=== PATIENT | male | born 1955 | race Caucasian/White ===

== ENCOUNTER 2018-04-09 02:39 | Day surgery (SDC) | payer OTHER ==
[2018-04-09] VITALS (7 sets, daily range): BP systolic 95–118; BP diastolic 63–83
[~2018-04-09] VITALS: Ht 175.3 cm; Wt 109.3 kg
[~2018-04-09 02:39] MED LIST: ALB18R INH; AMOX-559 PO; AMOX875T60 PO; ASPI81TA94 PO; FLUT16SP19 NS; GOLYTE PO; INSU100I30 SQ; PNEI IJ; SITA1TAB17 PO; SITA1TBM4 PO
[2018-04-09] MEDS ORDERED: PROPOFOL EMUL(*) 10MG/ML 20 ML 20 ML ONE ×3 (07:09→09:53)
[2018-04-09] MEDS ORDERED: LIDOCAINE/SOD BICARB 8.4% SYR ID ONE (07:50)
[2018-04-09] MEDS ORDERED: NORMOSOL R SOLN(*) 1000 ML BAG 1,000 ML IV PRN (07:50)
--- NOTE | 2018-04-09 10:14 | Short(Outpt) Discharge Summary ---
Discharge Summary Reason for Hosp/Final Diag: (1) Family history of colon cancer in father Departure Discharge to: Home, Self Care Discharge Instructions Home Meds Active Scripts Peg/Electrolytes (GOLYTELY SOLUTION) 4,000 Ml Soln, 1 GAL PO ONCE, #1 GAL 0 Refills Prov:ISAIAH WALLACE MD 02/26/18 Insulin Glargine 100 Un/Ml Pen (LANTUS SOLOSTAR PEN) 100 Unit/1 Ml Insuln.pen, 80 UNIT SQ BID, #10 BOX 3 Refills add 2 units every 3 days until FBS less than 100-120 Prov:SHARIFA RODRIGUEZ MD 02/03/18 Albuterol Sulfate (VENTOLIN HFA) 18 Gm Inh, 1-2 PUFF INH QDAY Y for WHEEZING, # 1 INH 1 Refill Prov:SHARIFA RODRIGUEZ MD 09/13/17 Sitagliptin Phos/Metformin Hcl (JANUMET XR 50-1,000 MG TABLET) 1 Each Tbmp.24hr , 2 TAB PO QDAY, #180 TAB 3 Refills Prov:SHARIFA RODRIGUEZ MD 06/20/17 Reported Medications Aspirin (ASPIRIN) 81 Mg Tab.chew, 81 MG PO QDAY, TAB.CHEW 06/13/16 Diet: Regular Activity: As Tolerated Special Instructions: You colonoscopy was completed without any problems and your prep was excellent (Good Job!!). I removed a large polyp from you colon (from the cecum) and it was sent to pathology. I put tiny metal clips on the polyp site to prevent bleeding or perforation and they will fall out in your stool in about 10-14 days. Don't be alarmed if you see these but you will likely not even notice them. My office will call you in the next week or two and let you know what the polyp is and when your next colonoscopy should be. ISAIAH WALLACE MD Apr 09, 2018 10:13
== END 2018-04-09 11:10 | disposition home or self-care (01) ==
LOC: OR 02:39
PROVIDERS: ATTEND Surgery
DX: Z12.11 Encounter for screening for malignant neoplasm of colon (principal); K63.5 Polyp of colon; K57.30 Diverticulosis of large intestine without perforation or abscess without bleeding; E66.9 Obesity, unspecified; E11.9 Type 2 diabetes mellitus without complications; J45.909 Unspecified asthma, uncomplicated; E78.5 Hyperlipidemia, unspecified; Z80.0 Family history of malignant neoplasm of digestive organs; Z68.35 Body mass index [BMI] 35.0-35.9, adult
CPT/HCPCS: 00811; 36416; 45385; 82948; 88305; J2704

== ENCOUNTER → 2018-07-31 | Outpatient (CLI) | payer OTHER ==
[~2018-07-31] MED LIST changes: +DICL-192 PO
[2018-07-31 14:09] LABS: PLATELET COUNT, AUTOMATED 481 K/uL (150-450)
--- NOTE | 2018-07-31 15:02 | RADIOLOGY IMAGING REPORT ---
FACILITY: [facility] - [place] PATIENT NAME: Crow Rayo : 1955 MR: [id number] V: [id number] EXAM DATE: ORDERING PHYSICIAN: SHARIFA RODRIGUEZ TECHNOLOGIST: Location: [facility] - [place] Patient: Crow Rayo : 1955 Visit/Account:[id number] Date of Sevice: 07/31/2018 LUMBAR SPINE 2 OR 3 VIEW Indication: Back pain., screening Comparison: None available FINDINGS: There are 5 lumbar type vertebral bodies. There is no acute osseous or acute alignment abnormality. There are moderate diffuse disc space narrowing changes noted throughout the lumbar spine. Large ant erior osteophyte formation is noted the disc space at L1-2. No spondylolisthesis is identified. The vertebral body heights appear well-maintained. IMPRESSION: 1. Diffuse moderate multilevel degenerative disc space disease, no acute abnormality noted Report Dictated By: Flash Arguello at 07/31/2018 2:49 PM Report E-Signed By: Flash Arguello at 07/31/2018 2:58 PM WSN:[id number]
== END ==
LOC: LAB 13:23
PROVIDERS: ATTEND Internal Medicine
DX: M47.896 Other spondylosis, lumbar region (principal); R52 Pain, unspecified; E11.9 Type 2 diabetes mellitus without complications; E78.5 Hyperlipidemia, unspecified
CPT/HCPCS: 36415; 72100; 81001; 82040; 82247; 82310; 82374; 82435; 82550; 82565; 82947; 84075; 84132; 84153; 84155; 84295; 84450; 84460; 84520; 85025; 85651; 86038; 86140; 86200; 86430

== ENCOUNTER 2018-08-13 09:29 | Outpatient (RCR) | payer OTHER ==
[~2018-08-13] VITALS: Ht 177.8 cm; Wt 106.6 kg
[2018-08-13] MEDS ORDERED: SITA1TBM4 PO (10:16)
--- NOTE | 2018-08-13 14:25 | Medical Nutrition Therapy ---
Nutrition Anthropometrics Height (Inches): 70 Weight (Pounds): 235 (stated wt) BMI: 33.7 Alex Nutrition Score: Alex Nutrition Risk Score: Dietary Referral Nutrition Risk Factors: Nutrition Risk Comment: Physical Findings Physical Appearance: Obese BMI 30-39 Skin Appearance Skin Appearance: Edema Edema Location Modifier: Edema Location: Type of Edema: Degree of Edema: Gastrointestinal Symptoms GI Symtoms: Tube Present: Bowel Sounds: Recent Bowel Pattern: Stool Characteristics: Nutrition/Food History Non-compliant W/Diet (pt states doen't follow any diet for diabetes) Breakfast: 1.5c honey nut cherrios, milk, fruit Lunch: homemade soup or sandwich, fuit, chips Dinner: meat, 1c veg, 1c starch, fuit Snacks: am- 1l toast, butter, HS- occ popcorn Nutritional Education Nutrition Education Topic: Diabetic Nutrition Learning Readiness: Interested Teaching Methods: Discussion, Handout, Demonstration Response to Teaching: Verbalize understanding, Reinforcement needed Teaching Recipient: Patient Nutrition Counseling: Pt states has diabetes for ~ 20 years. Initially checked BG but now only occasionally chedck for several years. Never recieved diet education. Reviewed glycemic response and portion sizes. Encouraged pt to try brft sand rather than cereal at brft to lower glycemic response. Reviwed CHO in food and provided meal plan of 3-4 serving of CHO or 2c/meal using plate method Pt set goal of lowering A1C by checking BG, limiting CHO, identifying high GI foods and exerciseing as PCP allows. Pt made support plan and scheduled for diabetic classes. Nutrition Monitoring & Eval RD Patient Assessment Time: [address] Assessment Type: RD Education Nutritional Comment: Provided 75 minute education focusing on nutrtion, diabetes distress factors, support plan and behavioural goals. Copies To Copies to: SHARIFA RODRIGUEZ MD ; DEVANTE SWEET Aug 13, 2018 14:25
[2018-08-25] MEDS ORDERED: DICL-192 PO (10:37)
[2018-09-10] MEDS ORDERED: GLIM4TAB50 PO (16:02)
[2018-09-10] MEDS ORDERED: FOLI-68 PO (16:02)
[2018-09-10] MEDS ORDERED: OXYC-869 PO (16:02)
[2018-09-10] MEDS ORDERED: HYDR200T42 PO (16:02)
[2018-09-10] MEDS ORDERED: METH2.5T43 PO (16:02)
[2018-09-10] MEDS ORDERED: FLAS1EAC2 TD (16:46)
[2018-09-10] MEDS ORDERED: FLAS1KIT2 (16:46)
== END 2018-09-17 ==
LOC: DIET 09:29
PROVIDERS: ATTEND Internal Medicine
DX: E11.65 Type 2 diabetes mellitus with hyperglycemia (principal)
CPT/HCPCS: G0108 ×2

== ENCOUNTER → 2018-08-29 | Outpatient (CLI) | payer OTHER ==
--- NOTE | 2018-08-29 16:02 | RADIOLOGY IMAGING REPORT ---
FACILITY: [facility] - [place] PATIENT NAME: Crow Rayo : 1955 MR: [id number] V: [id number] EXAM DATE: ORDERING PHYSICIAN: ABAD MORALEZ TECHNOLOGIST: Location: [facility] - [place] Patient: Crow aRyo : 1955 Visit/Account:[id number] Date of Sevice: 08/29/2018 MR right hand INDICATION: Swelling and pain in the right hand. COMPARISON: None available TECHNIQUE: Multiplanar multisequence MR images were obtained through the right hand FINDINGS: Moderate subcutaneous edema seen at the dorsum of the hand consistent with cellulitis versus prominen t soft tissue contusion. Significant motion artifact on the axial series Visualized flexor and extensor tendons of the hand wrist appear to be intact with no significant teno synovitis. There is a subchondral cystic change seen within the 2nd and 3rd metacarpal heads as well as the base of the 3rd proximal phalanx Evaluation of the IP joints limited due to partially flexed positioning for this exam. IMPRESSION: 1. Prominent soft tissue contusion versus cellulitis suggested at the dorsum of the hand as above. 2. No acute or aggressive osseous abnormality. 3. Significant cystic changes which are likely degenerative in nature. Report Dictated By: Stefano Serrano MD at 08/29/2018 3:51 PM Report E-Signed By: Stefano Serrano MD at 08/29/2018 3:56 PM WSN:[id number]
== END ==
LOC: MRI 08-28 13:39
PROVIDERS: ATTEND Internal Medicine
DX: L03.113 Cellulitis of right upper limb (principal)
CPT/HCPCS: 73221